=== PATIENT | female | born 1980 | race Caucasian/White ===

== ENCOUNTER 2021-07-16 10:14 | Emergency (ER) | payer BC, SELFPAY ==
--- NOTE | ~2021-07-16 | XR_ITS ---
EXAMINATION: XR chest 2V DATE: 07/16/2021 11:03 INDICATION: Cough, tobacco use TECHNIQUE: PA and lateral views of the chest are obtained. COMPARISON: None available FINDINGS: The lungs are free of acute opacities. There is no pleural effusion or pneumothorax. The ca rdiomediastinal silhouette is normal. There is mild wedging of a midthoracic vertebral body. IMPRESSION: 1. No acute cardiopulmonary abnormality. Reviewed, dictated and finalized at location A.
[2021-07-16 10:25] VITALS: BP 121/76; PULSE 71; RESP 16; TEMP 37.4; O2SAT 99
--- NOTE | 2021-07-16 10:25 | ED.URI ---
HPI - URI/Sore Throat General Chief Complaint: Upper Respiratory Infection Stated Complaint: Sore Throat Time Seen by Provider: 07/16/21 10:25 Source: patient Mode of arrival: ambulatory Limitations: no limitations History of Present Illness HPI Narrative: 40-year-old female presents with complaint of fatigue for 10 days. States that she has a mild cough. Yesterday had same throat irritation and noticed a white spot to right tonsil. States that she hit it with a Q-tip and then threw the Q-tip away. Drink a bunch of water. When she woke up this morning the white spot was gone. She does not have any throat discomfort at this time. States she has a history of sinus infections but this does not feel like a bacterial sinus infection. Reports history of strep multiple times but this does not feel like a normal strep. Is concerned that she has tonsillitis. All systems reviewed and negative except as noted above. Related Data Home Medications Medication Instructions Recorded Confirmed No Home Medications 07/16/21 07/16/21 Allergies Allergy/AdvReac Type Severity Reaction Status Date / Time No Known Allergies Allergy Verified 07/16/21 10:18 Review of Systems Review of Systems: CONSTITUTIONAL: Denies fever, chills, or sweats. Reports fatigue. EYES: Denies visual changes, redness, or discharge. ENT: Denies rhinorrhea, congestion, sore throat, or otalgia. Reports possible tonsil stone that has resolved. CARDIOVASCULAR: Denies chest pain, palpitations, or edema. RESPIRATORY: Reports cough. Denies dyspnea. GASTROINTESTINAL: Denies abdominal pain, nausea, vomiting, or diarrhea. GENITOURINARY: Denies dysuria or hematuria. SKIN: Denies rash or itching. MUSCULOSKELETAL: Denies back pain, joint pain, or myalgia. NEUROLOGIC: Denies headache, numbness, or weakness. PSYCHIATRIC: Denies anxiety or depression. All other systems reviewed are negative, except as documented in HPI. PMFSH Comments At time of signature, agree with nursing past medical, surgical, social and family history. There is no relevant family history pertinent to the presenting complaint. Exam Narrative: GENERAL: This is a well-nourished, well-developed patient, in no apparent distress. HEAD: normocephalic, atraumatic. EYES: PERRL. Sclera clear/white. Vision is grossly intact. EARS: External ears normal, auditory canals clear and without drainage, TMs normal without perforation. Hearing grossly intact. NOSE: External nose normal with no obvious nasal discharge, nares without redness, no rhinorrhea. THROAT: Mucous membranes moist, posterior pharynx clear. No tonsillar swelling. No tonsil stones noted. No exudates or erythema to tonsils. NECK: Neck supple, non-tender without lymphadenopathy, masses or thyromegaly. CARDIOVASCULAR: Regular rate and rhythm without murmurs, gallops, or rubs. RESPIRATORY: Clear to auscultation. Breath sounds equal bilaterally. No wheezes, rales, or rhonchi. SKIN: warm, Dry, intact with no suspicious lesions or rash, good texture and turgor. NEURO: awake, alert, and oriented to person, place and time. There were no obvious focal neurologic abnormalities. EXTREMITIES: Normal range of motion to all extremities. Course Course Level of Care: Express Care Visit Vital Signs Vital signs: Vital Signs Temperature 37.4 C 07/16/21 10:25 Pulse Rate 71 07/16/21 10:25 Respiratory Rate 16 07/16/21 10:25 Blood Pressure 121/76 07/16/21 10:25 Pulse Oximetry 99 07/16/21 10:25 Temperature 37.4 C 07/16/21 10:25 Pulse Rate 71 07/16/21 10:25 Respiratory Rate 16 07/16/21 10:25 Blood Pressure 121/76 07/16/21 10:25 Pulse Oximetry 99 07/16/21 10:25 Reviewed MDM - URI/Sore Throat MDM Narrative Medical decision making narrative: Chest x-ray normal. Discussed results with patient. Negative influenza test. PCR COVID sent due to 10 days of fatigue. Recommend she follow-up with her PCP for basic labs due to compla
[2021-07-16 20:06] LABS: SARS-CoV-2 RNA PCR Negative
== END 2021-07-16 11:30 | disposition home or self-care (01) ==
PROVIDERS: Emergency Provider Nurse Practitioner Family
DX: R53.83 Other fatigue (principal); J06.9 Acute upper respiratory infection, unspecified; Z86.16 Personal history of COVID-19
CPT/HCPCS: 71046; 87804; 99203; C9803; G0463; U0003; U0005